=== PATIENT | male | born 1975 ===

== ENCOUNTER 2016-09-02 11:35 | Emergency (ER) | payer OTHER ==
[2016-09-02 11:53] VITALS: BP 134/87
[2016-09-02] MEDS ORDERED: Ibuprofen TAB* 400 MG PO ONE (11:59)
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
== END 2016-09-02 13:21 | disposition home or self-care (01) ==
LOC: UCEAST 11:35
DX: S39.012A Strain of muscle, fascia and tendon of lower back, initial encounter (principal); V47.5XXA Car driver injured in collision with fixed or stationary object in traffic accident, initial encounter; Y93.89 Activity, other specified; Y92.410 Unspecified street and highway as the place of occurrence of the external cause; M54.16 Radiculopathy, lumbar region; F17.210 Nicotine dependence, cigarettes, uncomplicated
CPT/HCPCS: 72110; 81003; 99212; A9270-GY; G0463

== ENCOUNTER 2016-11-27 17:51 | Emergency (ER) | payer SELFPAY ==
[2016-11-27] MEDS ORDERED: Morphine INJ* 2 MG/ML 1 ML SYRINGE IM ONE (17:55)
[2016-11-27 18:01] VITALS: BP 104/67
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
== END 2016-11-27 18:48 | disposition short-term general hospital (02) ==
LOC: UCEAST 17:51
DX: R06.89 Other abnormalities of breathing (principal); V43.52XA Car driver injured in collision with other type car in traffic accident, initial encounter
CPT/HCPCS: 71020; 96372; 99213; G0463; J2270

== ENCOUNTER 2016-12-30 07:15 | Emergency (ER) | payer SELFPAY ==
[2016-12-30 07:41] VITALS: BP 146/95
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
== END 2016-12-30 09:10 | disposition home or self-care (01) ==
LOC: UCEAST 07:15
DX: L02.413 Cutaneous abscess of right upper limb (principal); S20.211D Contusion of right front wall of thorax, subsequent encounter; F14.10 Cocaine abuse, uncomplicated; B19.10 Unspecified viral hepatitis B without hepatic coma; J45.909 Unspecified asthma, uncomplicated; K21.9 Gastro-esophageal reflux disease without esophagitis; Z87.891 Personal history of nicotine dependence
CPT/HCPCS: 99212; G0463

== ENCOUNTER 2017-01-01 14:26 | Emergency (ER) | payer SELFPAY ==
[2017-01-01 15:11] VITALS: BP 127/79
--- NOTE | 2017-01-01 16:18 | UC ---
Skin Complaint HPI - HPI Summary HPI Summary: Patient with abscess right AC seen 2 days ago and now has increase erythema and swelling in fore arm as well the abscess has opened and is draining patient c/o sever amount of pain no fevers - History of Current Complaint Chief Complaint: [facility] Time Seen by Provider: 01/01/17 16:00 Stated Complaint: SKIN COMPLAINT Hx Obtained From: Patient Onset/Duration: Gradual Onset, Lasting Days, Worse Since - past 24 hours Timing: Constant Onset Severity: Moderate Current Severity: Severe Location: Discrete - right forearm Character: Swelling, Pain, Redness Aggravating: Nothing Alleviating: Nothing Associated Signs & Symptoms: Positive: Negative - Allergy/Home Medications Allergies/Adverse Reactions: Allergies Allergy/AdvReac Type Severity Reaction Status Date / Time No Known Allergies Allergy Verified 01/01/17 17:17 Review of Systems Constitutional: Negative Skin: Other - entire forarm erythema and swelling 1x1 inch open absess with purulent drainage near right ac Eyes: Negative ENT: Negative Respiratory: Negative Cardiovascular: Negative Gastrointestinal: Negative Genitourinary: Negative Motor: Negative Neurovascular: Negative Musculoskeletal: Negative Neurological: Negative Psychological: Negative All Other Systems Reviewed And Are Negative: Yes PMH/Surg Hx/FS Hx/Imm Hx Previously Healthy: No - Hep B&C Other History Of: Hepatitis B - Surgical History Surgical History: None - Family History Known Family History: Positive: None, Other - Asthma. Father of cirrhosis of the liver. Sister has fibromyalgia Negative: Cardiac Disease, Hypertension, Diabetes - Social History Occupation: Employed Full-time Lives: With Family Alcohol Use: None Substance Use Type: None Smoking Status (MU): Former Smoker Type: Cigarettes - Immunization History Most Recent Influenza Vaccination: None Most Recent Tetanus Shot: UTD Most Recent Pneumonia Vaccination: None Physical Exam Triage Information Reviewed: Yes Appearance: Well-Nourished, Ill-Appearing, Pain Distress Vital Signs: Initial Vital Signs Temp 98.4 F 01/01/17 15:06 Pulse 69 01/01/17 15:06 Resp 18 01/01/17 15:06 BP 127/79 01/01/17 15:06 Pulse Ox 100 01/01/17 15:06 Vital Signs Reviewed: Yes Eye Exam: Normal Eyes: Positive: Conjunctiva Clear ENT Exam: Normal ENT: Positive: Normal ENT inspection, Hearing grossly normal. Negative: Nasal congestion, Nasal drainage, Trismus, Muffled/hoarse voice Dental Exam: Normal Neck exam: Normal Neck: Positive: Supple, Nontender, No Lymphadenopathy Respiratory Exam: Normal Respiratory: Positive: Normal breath sounds, No respiratory distress Cardiovascular Exam: Normal Cardiovascular: Positive: RRR, No Murmur, Pulses Normal, Brisk Capillary Refill Musculoskeletal Exam: Other Musculoskeletal: Positive: Strength Intact, ROM Intact, Edema @ - right forerm Neurological Exam: Normal Neurological: Positive: Alert, Muscle Tone Normal Psychological Exam: Normal Skin: Positive: Other - open and draining absess right forearm Course/Dx - Course Course Of Treatment: transfer to hospital for further evaluation - Differential Diagnoses - Skin Complaint Differential Diagnoses: Cellulitis, Other - dvt,sepsis - Diagnoses Provider Diagnoses: Abscess, cellulitis right forarm - Physician Notification/Consults Time Discussed With Above Provider: 16:30 - Brenda YADAV Instructed by Provider To: Transfer Discharge - Discharge Plan Condition: Stable Disposition: AGAINST MEDICAL ADVICE Referrals: No Primary Care Phys,NOPCP [Primary Care Provider] -
== END 2017-01-01 16:20 | disposition left against medical advice (07) ==
LOC: UCEAST 14:26
DX: L02.413 Cutaneous abscess of right upper limb (principal); L03.113 Cellulitis of right upper limb; Z87.891 Personal history of nicotine dependence
CPT/HCPCS: 99212; G0463

== ENCOUNTER 2017-01-01 16:45 | Emergency (ER) | payer SELFPAY ==
[2017-01-01] MEDS ORDERED: Vancomycin(*) 1,500 MG in NS 0.9% 250 ML* 250 ML IVPB ONE (17:29)
[2017-01-01] MEDS ORDERED: Ketorolac INJ* 30 MG/ML 1 ML VIAL IV PUSH ONE (17:49)
[2017-01-01 17:51] LABS: Hematocrit 46 % (42-52); Hemoglobin 15.5 g/dl (14.0-18.0); Mean Corpuscular HGB Conc 33 g/dl (31-36); Mean Corpuscular Hemoglobin 29 pg (27-31); Mean Corpuscular Volume 86 fL (80-94); Mean Platelet Volume 8 um3 (7.4-10.4); Red Blood Count 5.39 10^6/ul (4.0-5.4); Red Cell Distribution Width 14 % (10.5-15); White Blood Count 7.5 10^3/ul (3.5-10.8)
--- NOTE | 2017-01-01 18:16 | ED ---
Skin Complaint - HPI Summary HPI Summary: Patient presents to ED from [facility] with CC of right antecubital abscess for IV drug use. He states the abscess has been there for 4 days, but has been worsening. Today, he arrives with small hole with surrounding abscess which is not fluctuant and surrounding erythema and warmth. He endorses previous drug use, but denies hx of abscess or MRSA. Denies aches, chills, sweats or fevers. Area measures 3X4cm. - History of Current Complaint Chief Complaint: EDGeneral Time Seen by Provider: 01/01/17 17:07 Stated Complaint: DX INFECTION IN ARM-SENT FROM [facility] Hx Obtained From: Patient Onset/Duration: Started Hours Ago Skin Exposure Onset/Duration: Days Ago Timing: Constant Onset Severity: Moderate Current Severity: Moderate Pain Intensity: 7 Pain Scale Used: 0-10 Numeric Skin Location: Arm - antecubital area to the right arm Character: Swelling, Pain, Raised Aggravating Symptom(s): Touch Alleviating Symptom(s): Nothing Associated Signs & Symptoms: Drainage, Tenderness Related History: Other: - IV drug use - Allergy/Home Medications Allergies/Adverse Reactions: Allergies Allergy/AdvReac Type Severity Reaction Status Date / Time No Known Allergies Allergy Verified 01/01/17 17:17 PMH/Surg Hx/FS Hx/Imm Hx Previously Healthy: Yes Endocrine/Hematology History: Denies: Hx Thyroid Disease Cardiovascular History: Denies: Hx Hypertension Respiratory History: Denies: Hx Asthma, Hx Chronic Obstructive Pulmonary Disease (COPD) GI History: Denies: Hx Ulcer - Immunization History Date of Tetanus Vaccine: unk Date of Influenza Vaccine: unk Hx Pertussis Vaccination: No Immunizations Up to Date: Unable to Obtain/Confirm Infectious Disease History: No Infectious Disease History: Reports: Hx Hepatitis - hep c cured Denies: Hx Human Immunodeficiency Virus (HIV), Traveled Outside the [place] in Last 30 Days - Family History Known Family History: Positive: None, Other - Asthma. Father of cirrhosis of the liver. Sister has fibromyalgia Negative: Cardiac Disease, Hypertension, Diabetes - Social History Occupation: Unemployed Lives: With Family Alcohol Use: None Hx Substance Use: No Substance Use Type: Reports: None Hx Tobacco Use: Yes Smoking Status (MU): Former Smoker Type: Cigarettes Review of Systems Constitutional: Negative Eyes: Negative Cardiovascular: Negative Respiratory: Negative Positive: no symptoms reported, see HPI Musculoskeletal: Negative Positive: Other - 3X4cm abscess to the antecubital fossa of the right arm from IV drug use Neurological: Negative Psychological: Normal All Other Systems Reviewed And Are Negative: Yes Physical Exam Triage Information Reviewed: Yes Vital Signs On Initial Exam: Initial Vitals Temp Pulse Resp BP 98.1 F 65 20 113/86 01/01/17 17:00 01/01/17 17:00 01/01/17 17:00 01/01/17 17:00 Vital Signs Reviewed: Yes Appearance: Positive: Well-Appearing, Well-Nourished Skin: Positive: Other - 3X4cm abscess to the antecubital fossa of the right arm from IV drug use Head/Face: Positive: Normal Head/Face Inspection Eyes: Positive: Normal, EOMI, LORETA, Conjunctiva Clear Neck: Positive: Supple, No Lymphadenopathy Respiratory/Lung Sounds: Positive: Clear to Auscultation, Breath Sounds Present Cardiovascular: Positive: Normal, RRR, Pulses are Symmetrical in both Upper and Lower Extremities Musculoskeletal: Positive: Normal, Strength/ROM Intact Neurological: Positive: Normal, Sensory/Motor Intact, Alert, Oriented to Person Place, Time Psychiatric: Positive: Normal AVPU Assessment: Alert Diagnostics - Vital Signs Vital Signs Temp Pulse Resp BP Pulse Ox 01/01/17 17:11 98.1 F 65 18 113/86 98 01/01/17 17:00 98.1 F 65 20 113/86 - Laboratory Lab Results: Lab Results 01/01/17 Range/Units 17:35 WBC 7.5 (3.5-10.8) 10^3/ul RBC 5.39 (4.0-5.4) 10^6/ul Hgb 15.5 (14.0-18.0) g/dl Hct 46 (42-52) % MCV 86 (80-94) fL MCH 29 (27-31) pg MCHC 33 (31-36) g/dl RDW 14 (10.5-15) % Plt Count 299 (150-450) 10^3/ul MPV 8 (7.4-10.4) um3 Neut % (Auto) 63.3 (38-83) % Lymph % (Auto) 24.5 L (25-47) % Stanley % (Auto) 9.3 H (1-9) % Eos % (Auto) 2.1 (0-6) % Baso % (Auto) 0.8 (0-2) % Absolute Neuts (auto) 4.7 (1.5-7.7) 10^3/ul Absolute Lymphs (auto) 1.8 (1.0-4.8) 10^3/ul Absolute Monos (auto) 0.7 (0-0.8) 10^3/ul Absolute Eos (auto) 0.2 (0-0.6) 10^3/ul Absolute Basos (auto) 0.1 (0-0.2) 10^3/ul Absolute Nucleated RBC 0.02 10^3/ul Nucleated RBC % 0.3 Result Diagrams: 01/01/17 17:35 01/01/17 17:35 Lab Statement: Any lab studies that have been ordered have been reviewed, and results considered in the medical decision making process. Course/Dx - Course Course Of Treatment: Patient presents with 3X4cm abscess to the antecubital fossa of the right arm from IV drug use. Sent here by [facility]. Denies fevers, chills, aches or sweats. Abscess present for 5 days. He has full ROM without pain during ROM but pain on palpation at 10/10. Patient given toradol and tramadol over the course of stay with relief. He denies pain on discharge. Patient is encouraged to return in 2 days for provider to redo check up on wound. He agrees. - Differential Diagnoses - Skin Complaint Differential Diagnoses: Impetigo, Urticaria - Diagnoses Provider Diagnoses: Abscess of arm, right Discharge - Discharge Plan Condition: Stable Disposition: HOME Prescriptions: Acetaminop/Codeine 30 MG TAB* [Tylenol/Codeine 30 MG TAB*] 1 tab PO Q6H PRN #12 tab MDD 4 PRN Reason: Pain Patient Education Materials: Abscess (ED) Referrals: No Primary Care Phys,NOPCP [Primary Care Provider] - Additional Instructions: If you develop redness, streaks of red around the wound, swelling, abnormal drainage or you develop a fever - you need to come back to the ED right away.
[2017-01-01] MEDS ORDERED: NS 0.9% 250 ML* 0 ML ONE (18:23)
[2017-01-01] MEDS ORDERED: NS 0.9% 250 ML* 250 ML ONE (18:24)
[2017-01-01 19:02] LABS: Albumin 4.1 g/dL (3.2-5.2); BUN/Creatinine Ratio 15.2 (8-20); Calcium 9.1 mg/dL (8.6-10.3); EGFR African American 92.5 (>60); EGFR Non-African American 71.9 (>60); Globulin 3.4 g/dL (2-4); Potassium 3.6 mmol/L (3.5-5.0); Total Bilirubin 0.8 mg/dL (0.2-1.0); Total Protein 7.5 g/dL (6.4-8.9)
[2017-01-01] MEDS ORDERED: Iohexol 300* (CONTRAST) 10 ML SDV IV ONE (19:13)
[2017-01-01] MEDS ORDERED: Vancomycin(*) 1,000 MG ADVAN IVPB ONE (19:49)
--- NOTE | 2017-01-01 20:45 | RAD ---
INDICATION: Redness and drainage and right antecubital fossa and an IV drug user. COMPARISON: None. TECHNIQUE: Contrast enhanced CT examination of the right antecubital fossa acquired after the intravenous injection of 100 mL Omnipaque 300. Axial images were acquired and sagittal and coronal reformats were created and independently analyzed. FINDINGS: Overlying the right antecubital fossa, there is a small amount of subcutaneous infiltration that extends down to the basilic vein. There is no drainable abscess. Remaining visualized structures are normal. IMPRESSION: Subcutaneous induration overlying the right antecubital fossa extending to the basilic vein. There is no abscess or other drainable collection identified.
[2017-01-01] MEDS ORDERED: traMADol TAB* 50 MG PO ONE (21:06)
[2017-01-01 23:08] VITALS: BP 138/71
--- NOTE | 2017-01-04 08:53 | ED ---
Progress - Progress Note Progress Note: Pt's draining wound cx reveals strep intermedius - spoke w/ pt's sister, Sandi, who reports wound is improving. Still draining but feels better and no fever, chills or streaking. Pt does not have PCP so advised again if wound is worse to return to ED. Sandi voices understanding and agrees to relay info to pt as only # listed is hers (he does not have one). Course/Dx - Course Course Of Treatment: Patient presents with 3X4cm abscess to the antecubital fossa of the right arm from IV drug use. Sent here by [facility]. Denies fevers, chills, aches or sweats. Abscess present for 5 days. He has full ROM without pain during ROM but pain on palpation at 10/10. Patient given toradol and tramadol over the course of stay with relief. He denies pain on discharge. Patient is encouraged to return in 2 days for provider to redo check up on wound. He agrees. - Diagnoses Provider Diagnoses: Abscess of arm, right
== END 2017-01-01 23:04 | disposition home or self-care (01) ==
LOC: ED 16:45
DX: L02.413 Cutaneous abscess of right upper limb (principal); F19.90 Other psychoactive substance use, unspecified, uncomplicated; Z87.891 Personal history of nicotine dependence
CPT/HCPCS: 36415; 80053; 82553; 83874; 85025; 87040; 87070; 87077; 87186; 87205; 96365; 96366; 96375; 99282; A9270-GY; J1885; J3370; Q9967